=== PATIENT | female | born 1995 ===

== ENCOUNTER → 2024-09-23 | Outpatient (CLI) | payer OTHER | LOC: LAB SHORT 09:42 → LAB 09:42 | DX: O09.892 Supervision of other high risk pregnancies, second trimester (principal) | CPT/HCPCS: 87081; 87150 ==

== ENCOUNTER 2024-10-21 10:48 | Inpatient (IN) | payer OTHER ==
[2024-10-21] VITALS (28 sets, daily range): BP systolic 73–123; BP diastolic 48–85
[~2024-10-21] VITALS: Ht 167.6 cm; Wt 72.0 kg
[2024-10-21] MEDS ORDERED: ePHEDrine Sulfate 50 MG/ML 1ML Injection XX PRN (11:05)
[2024-10-21] MEDS ORDERED: Lactated Ringer's 1,000 ML IV PRN (11:05)
[2024-10-21] MEDS ORDERED: Tranexamic Acid 100 ML IV SCH (11:05)
[2024-10-21] MEDS ORDERED: Misoprostol 200 MCG Tab PR PRN ×2 (11:05→15:45)
[2024-10-21] MEDS ORDERED: Misoprostol 200 MCG Tab BC PRN (11:05)
[2024-10-21] MEDS ORDERED: Oxytocin 10 Unit / ML Vial IM PRN (11:05)
[2024-10-21] MEDS ORDERED: Ondansetron HCl 2 MG / ML 2ML Vial IV PRN (11:05)
[2024-10-21] MEDS ORDERED: Carboprost Tromethamine 250 MCG/ML 1ML Amp IM PRN ×2 (11:05→15:40)
[2024-10-21] MEDS ORDERED: FentaNYL 2mcg/ml-Bup 0.1% Epd 250 ML EPI PRN (11:05)
[2024-10-21] MEDS ORDERED: OXYTOCIN/RINGER'S LACTATE 500 ML IV PRN (11:05)
[2024-10-21] MEDS ORDERED: Methylergonovine Maleate 0.2MG / ML 1ML Amp IM PRN ×2 (11:05→15:40)
[2024-10-21] MEDS ORDERED: Lactated Ringer's 1,000 ML IV SCH ×3 (11:05→15:45)
[2024-10-21] MEDS ORDERED: Acetaminophen 500 MG Tab PO PRN (11:05)
[2024-10-21] MEDS ORDERED: Calcium Carbonate 500 MG Tab Chew PO PRN (11:10)
[2024-10-21 11:47] LABS: BASOPHILS ABSOLUTE AUTO 0.02 K/mm3 (0.00-0.23); BASOPHILS PERCENT AUTO 0 % (0-2); EOSINOPHILS ABSOLUTE AUTO 0.04 K/mm3 (0.00-0.68); EOSINOPHILS PERCENT AUTO 0 % (0-6); Hematocrit 35.8 % (33.0-51.0); Hemoglobin 11.8 g/dL (11.5-16.0); IMMATURE GRAN ABSOLUTE AUTO 0.08 K/mm3 (0.00-0.10); IMMATURE GRAN PERCENT AUTO 1 % (0-1); LYMPHOCYTES ABSOLUTE AUTO 1.79 K/mm3 (0.84-5.20); LYMPHOCYTES PERCENT AUTO 17 % (21-46); MONOCYTES ABSOLUTE AUTO 0.46 K/mm3 (0.16-1.47); MONOCYTES PERCENT AUTO 4 % (4-13); Mean Corpuscular HGB 27.7 pg (26.0-34.0); Mean Corpuscular Volume 84 fL (80-100); Mean Platelet Volume 10.2 fL (9.1-12.4); NEUTROPHILS ABSOLUTE AUTO 8.16 K/mm3 (1.96-9.15); NEUTROPHILS PERCENT AUTO 77 % (41-73); Platelet Count 284 K/mm3 (150-400); RDW Coefficient Variation 14.1 % (11.7-14.2); RDW Standard Deviation 42.8 fL (35.1-46.3); Red Blood Cell Count 4.26 M/mm3 (3.80-5.20); White Blood Cell Count 10.55 K/mm3 (4.00-11.30)
[2024-10-21] MEDS ORDERED: Ibuprofen 400 MG Tab PO PRN (15:35)
[2024-10-21] MEDS ORDERED: Witch Hazel/Glycerin PADS TOP PRN (15:35)
[2024-10-21] MEDS ORDERED: Docusate Sodium 100 MG Cap PO PRN (15:35)
[2024-10-21] MEDS ORDERED: FLU VACC TS2024-25(6MOS UP)/PF 45 MCG/0.5 ML SYRINGE IM SCH (15:40)
[2024-10-21] MEDS ORDERED: Acetaminophen 325 MG TABLET PO PRN (15:40)
[2024-10-21] MEDS ORDERED: Measles/Mumps/Rubella Vaccine 0.5 ML Vial SC ONE (15:40)
[2024-10-21] MEDS ORDERED: Benzocaine Topical Anesthetic Spray 60GM TOP PRN (15:40)
[2024-10-21] MEDS ORDERED: OXYTOCIN/RINGER'S LACTATE 500 ML IV SCH (15:45)
[2024-10-21] MEDS ORDERED: Ketorolac Tromethamine 30mg Vial IV PRN (15:45)
[2024-10-21] MEDS ORDERED: Lanolin Cream TOP PRN (15:45)
[2024-10-21] MEDS ORDERED: Rho(D) Immune Globulin 300 MCG / SYR IV ONE (21:10)
[2024-10-22 08:32] VITALS: BP 109/62
[2024-10-22] MEDS ORDERED: Prenatal Vit/FE Fumarate/FA 1 Tab PO SCH (09:00)
[2024-10-22 12:28] VITALS: BP 121/74
[2024-10-22] MEDS ORDERED: Measles/Mumps/Rubella Vaccine 0.5 ML Vial SC ONE (12:50)
== END 2024-10-22 16:00 | disposition home or self-care (01) | DRG 807 ==
LOC: OBS 10:48 → BC 10:53 → OBS 11:01 → BC 11:02
PROVIDERS: ADMIT Obstetrics & Gynecology
PROC: 10E0XZZ Delivery of Products of Conception, External Approach (ICD-10-PCS; principal; 2024-10-21)
PROC: 4A1HXCZ Monitoring of Products of Conception, Cardiac Rate, External Approach (ICD-10-PCS; 2024-10-21)
PROC: 3E0334Z Introduction of Serum, Toxoid and Vaccine into Peripheral Vein, Percutaneous Approach (ICD-10-PCS; 2024-10-21)
DX: O48.0 Post-term pregnancy (principal); Z37.0 Single live birth; Z3A.40 40 weeks gestation of pregnancy; O26.893 Other specified pregnancy related conditions, third trimester; Z67.41 Type O blood, Rh negative
CPT/HCPCS: 36415; 51702; 85025; 85460; 86850; 86900; 86901; 90707; A9270; J1885; J2590; J2791; J7120